=== PATIENT | female | born 1975 | race Caucasian/White ===

== ENCOUNTER 2016-09-14 17:04 | Emergency (ER) | payer SELFPAY ==
--- NOTE | ~2016-09-14 | ER ---
PATIENT'S NAME: PRAVIN BATES [facility] AGE: 40 Y [address] ROOM: [place] [id number] LOCATION: ED ADMIT DATE: 09/14/2016 ER/Outpatient Report DISCHARGE DATE: 09/14/2016 FAMILY PHYSICIAN: PHYSICIAN, NO ATTENDING PHYSICIAN: Frank French TIME SEEN: 1715 hours. HISTORY OF PRESENT ILLNESS: The patient is a 40-year-old female who said for the last several weeks she has had low energy, cough, and felt somewhat short of breath at times. Cough is productive at times; however, she is a smoker. Denies any fever or chills. ALLERGIES: NONE. CURRENT MEDICATIONS: See her copied list, which was reviewed. PAST MEDICAL HISTORY: Includes depression, posttraumatic stress disorder, and history of hypothyroidism. SURGERIES: Include 3 C-sections. SOCIAL HISTORY: Smoker, 2 pack a day. Denies alcohol. REVIEW OF SYSTEMS: GENERAL: No fevers in the last week. HEAD/ENT: Denies any headache, visual changes, or sore throat. RESPIRATORY: Somewhat of a smoker's cough and is productive at times. She does get short of breath at times. CARDIOVASCULAR: No history of murmurs. GASTROINTESTINAL: She said she has lost about 100 pounds over the last 3 years due to diet and exercise. Does have intermittent left-sided abdominal pain, which is somewhat chronic. GENITOURINARY: No flank pain. No dysuria. PHYSICAL EXAMINATION: VITAL SIGNS: On exam, temp is 99, her respiratory rate 16, pulse 77, and O2 sats 98%. GENERAL APPEARANCE: She appeared well-nourished. No obvious distress. PATIENT'S NAME: PRAVIN BATES [facility] AGE: 40 Y [address] ROOM: [place], [place] [address] LOCATION: ED ADMIT DATE: 09/14/2016 ER/Outpatient Report DISCHARGE DATE: 09/14/2016 FAMILY PHYSICIAN: PHYSICIAN, NO ATTENDING PHYSICIAN: Frank French HEAD: Normocephalic. EYES: PERRLA. No icterus. NOSE: Septum midline. MOUTH: Tongue midline. Buccal membranes moist. NECK: Supple. No thyromegaly. No adenopathy. LUNGS: Sounded diminished, but clear. HEART: Heart tones distant and regular. ABDOMEN: Soft. Slightly tender left-side. Active bowel sounds. LABORATORY DATA: Her CMS chloride was slightly elevated at 115, calcium slightly low at 8.4, TSH was 8.2, which is high, her free T4 was on the low normal. Urine was clear. CBC: White count 10,000, hemoglobin 12.6, ANC 6.7. Her EKG is in normal sinus rhythm. Chest x-ray: Heart size appeared normal, mediastinal structures, all appeared normal. There was no evidence of any consolidation pneumonia. ASSESSMENT: 1. Hypothyroidism, currently not treated. 2. Tobacco abuse. 3. History of depression and posttraumatic stress disorder. PLAN: We again started her back on her levothyroxine 50 mcg daily. Strongly recommend she establish a new family physician for followup. The patient verbalized understanding of our findings, recommendations, and agreed. DENISHA KIMBLE FOR MD AURELIO HAYES/majo /[id number] d: 09/15/16312 t: 09/18/162242, OUTPATIENT REPORT
[2016-09-14 17:51] LABS: BASOPHIL % 0.2 %; EOSINOPHIL # 0.1 K/uL (0.0-0.5); EOSINOPHIL % 1.1 %; HEMATOCRIT 38.2 % (33.0-46.0); HEMOGLOBIN 12.6 g/dL (10.0-15.0); IMMATURE GRANULOCYTE % 0.3 %; LYMPHOCYTE # 2.3 K/uL (0.8-4.0); LYMPHOCYTE % 22.7 %; MCH 32.3 pg (27.0-34.0); MCV 97.9 fl (83.0-98.0); MONOCYTE # 0.9 K/uL (0.0-1.0); MONOCYTE % 9.1 %; MPV 9.7 fl (9.4-12.4); NEUTROPHIL # (ANC) 6.7 K/uL (1.8-7.8); NEUTROPHIL % 66.6 %; NRBC % 0 /100WBC (0-0.00); PLATELET COUNT 250 K/uL (150-450); RDW-CV 14.4 % (11.9-14.6)
[2016-09-14 18:06] LABS: BILIRUBIN URINE NEGATIVE (NEGATIVE); BLOOD URINE NEGATIVE /UL (NEGATIVE); COLOR URINE YELLOW (YELLOW); GLUCOSE URINE NEGATIVE (NEGATIVE); KETONE URINE NEGATIVE (NEGATIVE); LEUKOCYTES URINE NEGATIVE /UL (NEGATIVE); NITRITE URINE NEGATIVE (NEGATIVE); PROTEIN URINE NEGATIVE (NEGATIVE); TURBIDITY URINE CLEAR (CLEAR); UROBILINOGEN URINE NORMAL (NORMAL)
[2016-09-14 18:11] LABS: ALBUMIN 3.6 gm/dL (3.5-5.0); ALK PHOS 49 IU/L (33-138); ALT 16 IU/L (12-78); ANION GAP 10.9 (10.0-19.0); AST 13 IU/L (10-40); BLOOD UREA NITROGEN 16 mg/dL (6-24); CALCIUM 8.4 mg/dL (8.5-10.5); CHLORIDE 115 mMol/L (96-110); CO2 23 mMol/L (22-32); ESTIMATED GFR (MDRD EQUATION) > 60; POTASSIUM 3.9 mMol/L (3.7-5.1); SODIUM 145 mMol/L (135-145); TOTAL BILIRUBIN 0.2 mg/dL (0.0-1.5); TOTAL PROTEIN 7.2 g/dL (6.0-8.4)
== END 2016-09-14 19:11 | disposition disaster alternative care site (69) ==
LOC: GMED 17:04
PROVIDERS: Physician Assistant Medical
DX: E03.9 Hypothyroidism, unspecified (principal); F17.210 Nicotine dependence, cigarettes, uncomplicated; F32.9 Major depressive disorder, single episode, unspecified; F43.10 Post-traumatic stress disorder, unspecified

== ENCOUNTER → 2016-12-04 | Outpatient (CLI) | payer OTHER | LOC: LKCL 17:15 | DX: Z12.4 Encounter for screening for malignant neoplasm of cervix (principal) | CPT/HCPCS: G0145 ==

== ENCOUNTER → 2017-01-29 | Outpatient (CLI) | payer OTHER | END | disposition disaster alternative care site (69) | LOC: GRAD 16:00 | DX: R10.11 Right upper quadrant pain (principal); R10.31 Right lower quadrant pain; R10.829 Rebound abdominal tenderness, unspecified site; I70.8 Atherosclerosis of other arteries; K59.1 Functional diarrhea | CPT/HCPCS: Q9967 ==